=== PATIENT | male | born 1965 | race Two or more races ===

== ENCOUNTER 2016-07-01 10:49 | Day surgery (SDC) | payer OTHER ==
[2016-06-30 15:30] VITALS: BMI 24.3
[2016-07-01 13:58] VITALS: TEMP 98.2
[2016-07-01 14:46] VITALS: BP 103/61; PULSE 61
--- NOTE | 2016-07-03 12:29 | PATH ---
Surgical Pathology Report Patient Name: EMIL WHIPPLE [facility]. Rec. #: [id number] /Age/Gender: 1965 (Age: 50) / M Account: [id number] Location: [facility]-ENDOSCOPY Taken: 07/01/2016 Received: 07/02/2016 Reported: 07/03/2016 Physicians: Ketan Anderson M.D. Specimen(s) Received BX CECUM Clinical History Screening, diarrhea Redundant sigmoid Final Diagnosis COLON, CECUM, BIOPSY: COLONIC MUCOSA WITHOUT SIGNIFICANT PATHOLOGIC CHANGES. NO EVIDENCE OF ACTIVE INFLAMMATION, SIGINIFICANT ARCHITECTURAL DISTORTION, GRANULOMATA OR DYSPLASIA; NO EVIDENCE OF MICROSCOPIC (LYMPHOCYTIC) COLITIS. Electronically Signed Wilfred Molina M.D. Gross Description Received in formalin, labeled "biopsy cecum" are 2 ramirez, irregular portions of soft tissue measuring 0.2 and 0.8 cm in greatest dimension. The specimens are submitted in toto in one cassette. /07/02/201607/02/2016
== END 2016-07-01 14:45 | disposition home or self-care (01) ==
LOC: JASU-ENDO 10:49
PROVIDERS: ATTEND Internal Medicine Gastroenterology
PROC: 0DBE8ZX Excision of Large Intestine, Via Natural or Artificial Opening Endoscopic, Diagnostic (ICD-10-PCS; principal; 2016-07-01 12:30)
DX: K52.9 Noninfective gastroenteritis and colitis, unspecified (principal); K63.89 Other specified diseases of intestine
CPT/HCPCS: 87045; 87046; 87177; 87186; 87209; 87324; 87328; 87329; 87449; 88305-TC